=== PATIENT | female | born 1995 | race Hispanic/Latino ===

== ENCOUNTER → 2018-12-09 | Day surgery (SDC) | payer OTHER ==
[2018-12-08 09:05] VITALS: BMI 26.8
[~2018-12-09] MED LIST: Bupivacaine-Epi 0.5%-1:200,000 PF Inj ONE; HYDROmorphone 0.5 mg/0.5 ml ISec ONE; Midazolam 2 MG/2 ML VIAL ONE; Propofol 10 mg/ml Inj (20 ML) ONE; Rocuronium 10 mg/ml (5 ml) ONE; Vasopressin 20 Units/ml Inj ONE; ceFAZolin 1 gm in NS 2 GM/200 ML BAG IVPB ONE
[2018-12-09] MEDS: HYDROmorphone 0.5 mg/0.5 ml ISec IVP PRN ×2 (12:26→12:42)
[2018-12-09 13:38] VITALS: RESP 16
[2018-12-09 14:28] VITALS: BP 120/63; PULSE 85; TEMP 97.7; O2SAT 99
--- NOTE | 2018-12-10 08:56 | OP ---
PROCEDURE DATE: 12/09/2018 PREOPERATIVE DIAGNOSIS: A 23-year-old 0 with right ovarian cyst. POSTOPERATIVE DIAGNOSIS: A 23-year-old 0 with right ovarian cyst. SURGEON: Darren Hathaway MD OUTSOLE SPLICER: Gregorio Marshall MD ANESTHESIOLOGIST: Kamran Beavers MD PROCEDURE PERFORMED: Diagnostic laparoscopy, right ovarian cystectomy. COMPLICATIONS: None. ESTIMATED BLOOD LOSS: 20 mL. DESCRIPTION OF PROCEDURE: After informed consent was obtained, the patient was brought to the operating room and placed on the table where general anesthesia was given. Once the anesthesia was given, the patient was prepped and draped in a normal sterile fashion. Examination found the uterus to be six weeks' size. No pelvic or adnexal mass. The anterior lip of cervix was grasped with a tenaculum. Gentle dilatation of the cervix was done. After that, the HUMI catheter was inserted for the manipulation of the uterus. Butler catheter was inserted in a sterile condition. After that, attention was turned towards the patient's abdomen. After that, Marcaine was given. Optiview was . right ovarian cyst. picture was taken. Then, a 2.5-mm port was placed on that side. After that, was taken. The cyst was cut. The cyst wall was taken out and sent to the Pathology. After that, cautery was done at the bleeding site. There were lot of adhesions and found to be hemostatic. No bleeding. After that, the ports were removed. The patient . The camera was removed. The patient tolerated the procedure well. HUMI catheter was removed. Butler catheter was removed. The patient . Darren Hathaway MD
== END | disposition home or self-care (01) ==
LOC: C.SDS 07:22
PROVIDERS: ATTEND Obstetrics & Gynecology
DX: N83.201 Unspecified ovarian cyst, right side (principal)
CPT/HCPCS: 58662; 88304; C1713; J0690; J1170; J1885; J2001; J2250; J2405; J2704; J2765; J3010